=== PATIENT | male | born 1950 | race Caucasian/White ===

== ENCOUNTER 2019-09-04 18:26 | Observation (INO) | payer MEDICARE ==
[~2019-09-04] VITALS: Ht 182.9 cm; Wt 104.5 kg
[2019-09-04 19:09] LABS: HEMATOCRIT 43.8 % (39.0-50.0); HEMOGLOBIN 14.5 g/dl (14.0-18.0); IMMATURE GRANULOCYTES 0.1 % (0.0-5.0); MEAN CELL VOLUME 89.9 fL CALC (80.0-100.0); MEAN CORPUSCULAR HGB 29.8 pG CALC (26.0-32.0); MEAN CORPUSCULAR HGB CONC 33.1 g/L CALC (32.0-36.0); NEUT# 4.87 thou/uL (1.82-7.42); RED BLOOD COUNT 4.87 mill/uL (4.70-6.10); RED CELL DISTRI WIDTH 13.8 % (11.5-15.5)
[2019-09-04 19:13] LABS: URINE BILIRUBIN - DIPSTICK NEGATIVE (NEGATIVE); URINE BLOOD DIPSTICK NEGATIVE (NEGATIVE); URINE COLOR YELLOW; URINE GLUCOSE - DIPSTICK NEGATIVE (NEGATIVE); URINE KETONE NEGATIVE (NEGATIVE); URINE LEUK ESTERASE NEGATIVE (NEGATIVE); URINE NITRITE - DIPSTICK NEGATIVE (Negative); URINE PROTEIN - DIPSTICK NEGATIVE (NEG-TRACE); URINE SPECIFIC GRAVITY >=1.030; URINE UROBILINOGEN - DIPSTICK 0.2 E.U./dL (0.2)
[2019-09-04 19:20] LABS: ALBUMIN 4.7 g/dL (3.2-5.0); ALKALINE PHOSPHATASE 83 u/l (38-126); ANION GAP 11 (6-22 (CALC)); BILIRUBIN, TOTAL 0.9 mg/dL (0.0-1.4); BUN 16 mg/dL (8-23); BUN/CREATININE RATIO 18 (12-20 (CALC)); CARBON DIOXIDE 28 mmol/l (22-30); CHLORIDE 105 mmol/l (95-108); CREATININE 0.9 mg/dL (0.7-1.3); GFR > 60 ML/MIN (>=60 (CALC)); GFR FOR AFR.AMER. > 60 ML/MIN (>=60 (CALC)); SGOT/AST 33 u/l (19-48); SODIUM 140 mmol/l (137-146); TOTAL PROTEIN 7.7 g/dL (6.3-8.2)
[2019-09-04 19:24] LABS: PROTHROMBIN TIME 10.5 SECONDS (9.0-12.5)
[2019-09-04] MEDS ORDERED: LIPITOR20 MG PO (19:45)
[2019-09-04] MEDS ORDERED: METOPROL TAR25 MG PO (19:45)
[2019-09-04] MEDS ORDERED: AMLODIPINE BESYL5 MG PO (19:46)
[2019-09-04] MEDS ORDERED: OMEPRAZOLE20 M2 PO (19:47)
[2019-09-04] MEDS ORDERED: PLAVIX75 MG PO (19:47)
[2019-09-04] MEDS ORDERED: MULTI VIT PO (19:48)
[2019-09-04] MEDS ORDERED: FISH OIL1000 MG PO (19:48)
[2019-09-04] MEDS ORDERED: COQ10200 MG PO (19:49)
[2019-09-04] MEDS ORDERED: GARLIC1000 MG PO (19:49)
[2019-09-05 06:26] LABS: CHOLESTEROL HDL RATIO 2.1 (<4.4 (CALC))
[2019-09-05 09:13] VITALS: BP 137/84
[2019-09-05 09:17] VITALS: BP 137/84
[2019-09-05] MEDS ORDERED: ASPIRIN ADULT L81 M2 PO (12:11)
== END 2019-09-05 12:55 | disposition home or self-care (01) ==
LOC: ED 18:26 → ED-I 20:10 → ED 20:24 → ED-I 09-05 12:55
PROVIDERS: Emergency Medicine; ADMIT Internal Medicine; ATTEND Internal Medicine
DX: G45.9 Transient cerebral ischemic attack, unspecified (principal); I10 Essential (primary) hypertension; Z86.73 Personal history of transient ischemic attack (TIA), and cerebral infarction without residual deficits; Z79.02 Long term (current) use of antithrombotics/antiplatelets